=== PATIENT | female | born 1975 | race Asian ===

== ENCOUNTER 2019-09-25 12:51 | Outpatient (CLI) | payer OTHER ==
[2019-09-25 13:40] LABS: PLATELET COUNT 462 K/uL (152-353)
[2019-09-25 13:58] LABS: POTASSIUM 3.6 mmol/L (3.6-5.2)
== END 2019-09-25 22:28 | disposition home or self-care (01) ==
LOC: RAD 12:51
PROVIDERS: Nurse Practitioner Family
DX: R53.83 Other fatigue (principal); Z79.899 Other long term (current) drug therapy; Z13.220 Encounter for screening for lipoid disorders; R73.01 Impaired fasting glucose; R05 Cough; R07.89 Other chest pain; J01.90 Acute sinusitis, unspecified
CPT/HCPCS: 36415; 80053; 80061; 83036; 84443; 85027

== ENCOUNTER 2020-02-20 15:31 | Outpatient (CLI) | payer OTHER ==
[2020-02-20 15:48] LABS: PLATELET COUNT 428 K/uL (152-353)
== END 2020-02-20 23:20 | disposition home or self-care (01) ==
LOC: LABW 15:31
PROVIDERS: Nurse Practitioner Family
DX: D64.9 Anemia, unspecified (principal)
CPT/HCPCS: 36415; 85027

== ENCOUNTER 2020-04-24 13:44 | Emergency (ER) | payer OTHER ==
[~2020-04-24] VITALS: Ht 167.6 cm; Wt 82.6 kg
[2020-04-24 13:51] VITALS: TEMP 97.1
[2020-04-24 14:34] LABS: PLATELET COUNT 397 K/uL (152-353)
[2020-04-24 14:38] LABS: POTASSIUM 3.5 mmol/L (3.6-5.2)
[2020-04-24 15:35] VITALS: BP 147/85
== END 2020-04-24 15:35 | disposition home or self-care (01) ==
LOC: ED 13:44
PROVIDERS: Hospitalist
DX: K21.9 Gastro-esophageal reflux disease without esophagitis (principal)
CPT/HCPCS: 80053; 81000; 81025; 82150; 83690; 85027; 99283

== ENCOUNTER 2020-07-12 14:23 | Emergency (ER) | payer OTHER ==
[~2020-07-12] VITALS: Ht 167.6 cm; Wt 82.6 kg
[2020-07-12 14:43] VITALS: BP 153/81; TEMP 97.5
[2020-07-12 15:24] LABS: PLATELET COUNT 452 K/uL (152-353)
== END 2020-07-12 15:44 | disposition home or self-care (01) ==
LOC: ED 14:23
PROVIDERS: Family Medicine
DX: D64.89 Other specified anemias (principal)
CPT/HCPCS: 36415; 83540; 85027; 99283

== ENCOUNTER 2022-01-10 18:20 | Emergency (ER) | payer OTHER ==
[~2022-01-10] VITALS: Ht 167.6 cm; Wt 81.6 kg
[2022-01-10 19:19] VITALS: BP 143/81; TEMP 98
== END 2022-01-10 19:19 | disposition home or self-care (01) ==
LOC: ED 18:20
DX: H10.11 Acute atopic conjunctivitis, right eye (principal); H01.00A Unspecified blepharitis right eye, upper and lower eyelids
CPT/HCPCS: 99282

== ENCOUNTER 2022-08-02 20:39 | Emergency (ER) | payer OTHER ==
[~2022-08-02] VITALS: Ht 167.6 cm; Wt 88.9 kg
[2022-08-02] MEDS ORDERED: FERROUS SULF325 M1 PO (21:03)
[2022-08-02] MEDS ORDERED: VITAMIN D50000 UNIT PO (21:04)
[2022-08-02 22:00] VITALS: BP 132/76; TEMP 98.7
== END 2022-08-02 22:00 | disposition home or self-care (01) ==
LOC: ED 20:39
PROC: 2W3CX1Z Immobilization of Right Lower Arm using Splint (ICD-10-PCS; principal; 2022-08-02)
DX: S66.811A Strain of other specified muscles, fascia and tendons at wrist and hand level, right hand, initial encounter (principal); W01.0XXA Fall on same level from slipping, tripping and stumbling without subsequent striking against object, initial encounter; Y93.41 Activity, dancing; Y92.89 Other specified places as the place of occurrence of the external cause
CPT/HCPCS: 81025; 99283